=== PATIENT | female | born 1965 | race Caucasian/White ===

== ENCOUNTER → 2023-03-13 10:12 | Outpatient (BNVA) | payer OTHER, SELFPAY | PROVIDERS: Visit Provider Internal Medicine Rheumatology ==

== ENCOUNTER 2023-03-13 11:21 | Outpatient (REF) | payer OTHER, SELFPAY ==
--- NOTE | ~2023-03-13 | XR_ITS ---
EXAMINATION: Bilateral hip x-ray CLINICAL INFORMATION: Pain COMPARISON: None. TECHNIQUE: 2 views of each hip FINDINGS: Right: Bone alignment is normal. No fracture or dislocation. Normal joint space. Small soft tissue calcification or ossification adjacent to the greater trochanter. Left: Bone alignment is normal. No fracture or dislocation. Mild arthritis at the left hip joint with joint space narrowing and osteophyte formation. Small osteophyte at the greater trochanter. XR/XR hip RT min 2V IMPRESSION: Mild left hip osteoarthritis. Small soft tissue calcification or ossification adjacent to the right greater trochanter.
--- NOTE | ~2023-03-13 | XR_ITS ---
EXAMINATION: Bilateral hip x-ray CLINICAL INFORMATION: Pain COMPARISON: None. TECHNIQUE: 2 views of each hip FINDINGS: Right: Bone alignment is normal. No fracture or dislocation. Normal joint space. Small soft tissue calcification or ossification adjacent to the greater trochanter. Left: Bone alignment is normal. No fracture or dislocation. Mild arthritis at the left hip joint with joint space narrowing and osteophyte formation. Small osteophyte at the greater trochanter. XR/XR hip LT min 2V IMPRESSION: Mild left hip osteoarthritis. Small soft tissue calcification or ossification adjacent to the right greater trochanter.
[2023-03-13 13:15] LABS: C Reactive Protein 0.97 mg/dL (< or = 0.50)
[2023-03-13 13:41] LABS: Erythrocyte Sedimentation Rate 7 MM/HR (0-20)
== END 2023-03-13 11:22 | disposition home or self-care (01) ==
LOC: HO.10HDL 11:21
PROVIDERS: Visit Provider Internal Medicine Rheumatology
DX: M47.816 Spondylosis without myelopathy or radiculopathy, lumbar region (principal); M25.551 Pain in right hip; M25.552 Pain in left hip
CPT/HCPCS: 36415; 73502; 85652; 86140